=== PATIENT | female | born 1995 | race Caucasian/White ===

== ENCOUNTER 2019-11-28 21:12 | Emergency (ER) | payer OTHER ==
[~2019-11-28] VITALS: Ht 170.2 cm; Wt 61.2 kg
[2019-11-28 21:12] VITALS: BP_SYST 147
== END 2019-11-28 22:00 | disposition left against medical advice (07) ==
LOC: SED 21:12
DX: R00.2 Palpitations (principal); Z53.21 Procedure and treatment not carried out due to patient leaving prior to being seen by health care provider